=== PATIENT | female | born 1985 | race African-American/Black ===

== ENCOUNTER 2017-01-04 07:37 | Emergency (ER) | payer OTHER ==
[~2017-01-04] VITALS: Ht 167.6 cm; Wt 77.1 kg
[2017-01-04 07:47] VITALS: BP 101/73
[2017-01-04] MEDS: NACL 0.9% 1,000 ML IV SCH (08:48)
[2017-01-04] MEDS: KETOROLAC 30 MG/ML VIAL IVP ONE (08:52)
[2017-01-04 09:05] LABS: BASOPHILS # (AUTO) 0.3 K/uL (0.00-0.22); BASOPHILS % (AUTO) 4.4 % (0.0-2.0); EOSINOPHILS # (AUTO) 0.1 K/uL (0-0.4); EOSINOPHILS % (AUTO) 1.7 % (0.0-4.0); HEMOGLOBIN 14.5 g/dL (12.0-16.0); LYMPHOCYTES # (AUTO) 0.9 K/uL (2.5-16.5); LYMPHOCYTES % (AUTO) 13.2 % (20.5-51.1); MEAN CORPUSCULAR HEMOGLOBIN 30 pg (27-31); MEAN CORPUSCULAR HGB CONC 32 g/dL (33-37); MEAN CORPUSCULAR VOLUME 91 fL (80-94); MONOCYTES # (AUTO) 0.5 K/uL (0.8-1.0); MONOCYTES % (AUTO) 6.5 % (1.7-9.3); NEUTROPHILS # (AUTO) 5.3 K/uL (1.8-7.7); NEUTROPHILS % (AUTO) 74.2 % (42.2-75.2); PLATELET COUNT (AUTO) 227 K/uL (140-450); RED BLOOD CELL COUNT(AUTO) 4.93 MIL/uL (4.20-5.40); RED CELL DISTRIBUTION WIDTH 12.5 % (11.6-13.7); WHITE BLOOD COUNT (AUTO) 7.1 K/uL (4.8-10.8)
[2017-01-04] MEDS: GLYCOPYRROLATE 0.2 MG/ML VIAL IV ONE (09:05)
[2017-01-04 09:07] LABS: CARBON DIOXIDE 28.5 mmol/L (21-32); CREATININE 0.8 mg/dL (0.6-1.3); POTASSIUM 3.5 mmol/L (3.5-5.1)
[2017-01-04 09:07] LABS: APPEARANCE,URINE HAZY (CLEAR); BILIRUBIN,URINE 1+ (NEGATIVE); BLOOD, URINE TRACE-I (NEGATIVE); COLOR,URINE YELLOW (YELLOW); LEUKOCYTE ESTERASE ,URINE TRACE (NEGATIVE); NITRITE, URINE NEGATIVE (NEGATIVE); UGLUCOSE NEGATIVE (NEGATIVE)
[2017-01-04 09:14] LABS: ALBUMIN 4.1 g/dL (3.4-5.0); TOTAL BILIRUBIN 0.6 mg/dL (0.0-1.0)
[2017-01-04 09:25] LABS: RBC,URINE NONE SEEN /HPF (0-5)
[2017-01-04 10:38] VITALS: BP 118/67
== END 2017-01-04 10:38 | disposition home or self-care (01) ==
LOC: MED 07:37
DX: N30.90 Cystitis, unspecified without hematuria (principal); K58.9 Irritable bowel syndrome, unspecified; F12.10 Cannabis abuse, uncomplicated
CPT/HCPCS: 36415; 80053; 81001; 81025; 82150; 83690; 84703; 85025; 87086; 96361; 96374; 96375; 99284; J1885; J3490; J7030

== ENCOUNTER 2018-05-12 09:12 | Emergency (ER) | payer OTHER ==
[~2018-05-12] VITALS: Ht 165.1 cm; Wt 73.5 kg
[2018-05-12 09:14] VITALS: BP 103/56
--- NOTE | 2018-05-12 09:27 | NUR ---
PATIENT AMBULATED TO BED 3 AT THIS TIME.
--- NOTE | 2018-05-12 09:30 | NUR ---
PT BIB TO THE ED WITH THE CHIEF C/O VAGINAL BLEEDING SINCE MORNING. HAD BLOOD CLOTS X1 THIS MORNING. NO HEAVY BLEEDING CURRENTLY PER PT. 7 WEEKS PREGNENT PER PT. + MORNING SICKNESS. NOT UNDER CARE. PT ALSO REPORTS HAVING COUGH WITH PHLEGM FOR 2 WEEKS. NO BLOOD IN COUGH. LUNGS CLEAR. DENIES FEVER. DENIES BURNING URINATION. STATES LOWER ABD PAIN OF 6/10 AT THIS TIME. VSS. ER AWARE.
--- NOTE | 2018-05-12 09:39 | NUR ---
PT BEING EVALUATED BY ER AT THIS TIME.
--- NOTE | 2018-05-12 09:58 | NUR ---
LAB AT THE BEDSIDE.
[2018-05-12 10:09] LABS: BASOPHILS % (AUTO) 0.3 % (0.0-2.0); EOSINOPHILS # (AUTO) 0.1 K/uL (0-0.4); EOSINOPHILS % (AUTO) 0.8 % (0.0-4.0); HEMATOCRIT 42.6 % (36-48); HEMOGLOBIN 14.3 g/dL (12.0-16.0); LYMPHOCYTES # (AUTO) 1.2 K/uL (2.5-16.5); LYMPHOCYTES % (AUTO) 11.5 % (20.5-51.1); MEAN CORPUSCULAR HEMOGLOBIN 31 pg (27-31); MEAN CORPUSCULAR HGB CONC 34 g/dL (33-37); MEAN CORPUSCULAR VOLUME 92.2 fL (80-94); MONOCYTES # (AUTO) 0.7 K/uL (0.8-1.0); MONOCYTES % (AUTO) 6.5 % (1.7-9.3); NEUTROPHILS # (AUTO) 8.4 K/uL (1.8-7.7); NEUTROPHILS % (AUTO) 80.9 % (42.2-75.2); PLATELET COUNT (AUTO) 216 K/uL (140-450); RED BLOOD CELL COUNT(AUTO) 4.62 MIL/uL (4.20-5.40); RED CELL DISTRIBUTION WIDTH 13.1 % (11.6-13.7); WHITE BLOOD COUNT (AUTO) 10.4 K/uL (4.8-10.8)
[2018-05-12 10:21] LABS: APPEARANCE,URINE SL CLOUDY (CLEAR); BILIRUBIN,URINE NEGATIVE (NEGATIVE); BLOOD, URINE 3+ (NEGATIVE); COLOR,URINE YELLOW (YELLOW); LEUKOCYTE ESTERASE ,URINE TRACE (NEGATIVE); NITRITE, URINE NEGATIVE (NEGATIVE); UGLUCOSE NEGATIVE (NEGATIVE)
[2018-05-12 10:25] LABS: WBC,URINE 0-5 /HPF (0-5)
--- NOTE | 2018-05-12 10:26 | NUR ---
US TECH AT THE BEDSIDE.
[2018-05-12 10:43] LABS: ALBUMIN 3.7 g/dL (3.4-5.0); ANION GAP 15.8 (8-16); CARBON DIOXIDE 22.6 mmol/L (21-32); CREATININE 0.7 mg/dL (0.6-1.3); POTASSIUM 3.4 mmol/L (3.5-5.1); TOTAL BILIRUBIN 0.6 mg/dL (0.0-1.0)
--- NOTE | 2018-05-12 11:33 | NUR ---
Female [employer] accompanied female patient for Pelvic Exam. present at bedside.
[2018-05-12 11:44] VITALS: BP 95/59
== END 2018-05-12 11:43 | disposition home or self-care (01) ==
LOC: MED 09:12
DX: O20.0 Threatened abortion (principal); O26.891 Other specified pregnancy related conditions, first trimester; R82.71 Bacteriuria; Z3A.01 Less than 8 weeks gestation of pregnancy
CPT/HCPCS: 36415; 76817; 80053; 81001; 81025; 83690; 84702; 85025; 86901; 99284; Q0092